=== PATIENT | male | born 1955 | race Caucasian/White ===

== ENCOUNTER → 2020-03-22 | Outpatient (CLI) | payer OTHER | END | disposition home or self-care (01) | LOC: OIH 09:14 | PROVIDERS: ATTEND Internal Medicine | DX: M54.2 Cervicalgia (principal) | CPT/HCPCS: 72040 ==

== ENCOUNTER 2020-05-10 10:46 | Day surgery (SDC) | payer OTHER ==
[2020-05-07] MEDS: CEFTRIAXONE SODIUM 1 GM IVP SCH (11:30)
[2020-05-07 12:41] VITALS: BP 146/83
[2020-05-08] MEDS: CEFTRIAXONE SODIUM 1 GM IVP SCH (11:40)
[2020-05-09] MEDS: CEFTRIAXONE SODIUM 1 GM IVP SCH (12:00)
[~2020-05-10] VITALS: Ht 170.2 cm; Wt 58.8 kg
[2020-05-10] VITALS (18 sets, daily range): BP systolic 133–156; BP diastolic 86–99
[~2020-05-10 10:46] MED LIST: MIRA25TA PO
[2020-05-10] MEDS ORDERED: LACTATED RINGERS 1000ML 1,000 ML IV ONE (12:55)
[2020-05-10] MEDS ORDERED: LIDOCAINE PF 2% 5ML ABBOJECT ONE (16:20)
[2020-05-10] MEDS ORDERED: DEXAMETHASONE SOD PHOSPHATE 10MG/ML 1ML VIAL ONE (16:20)
[2020-05-10] MEDS ORDERED: GLYCOPYRROLATE 1 MG/5 ML SYRINGE ONE (16:20)
[2020-05-10] MEDS ORDERED: PROPOFOL 10 MG/ML 20ML VIAL IV ONE (16:20)
[2020-05-10] MEDS ORDERED: SUCCINYLCHOLINE CHLORIDE 20 MG/ML 10 ML VIAL ONE (16:20)
[2020-05-10] MEDS ORDERED: ONDANSETRON HCL 4 MG/2 ML VIAL ONE ×2 (16:20→17:26)
[2020-05-10] MEDS ORDERED: ROCURONIUM 10MG/1ML SYR 10 MG/ML ML ONE (16:21)
[2020-05-10] MEDS ORDERED: NEOSTIGMINE 5MG/5ML SYR IV ONE (16:21)
[2020-05-10] MEDS ORDERED: FENTANYL CITRATE PF 50 MCG/1 ML 2ML VIAL ONE (16:21)
[2020-05-10] MEDS ORDERED: MIDAZOLAM HCL 1 MG/ML 2ML VIAL ONE (16:21)
[2020-05-10] MEDS: CEFTRIAXONE SODIUM 1 GM IVP SCH (17:18)
[2020-05-10] MEDS ORDERED: OPIUM/BELLADONNA ALKALOIDS 1 EACH SUPP.RECT RC ONE ×2 (17:43→17:45)
[2020-05-10] MEDS ORDERED: MEPERIDINE-PF 25 MG/ML SYG ONE (18:25)
[2020-05-10] MEDS ORDERED: PHENAZOPYRIDINE HCL 200 MG TABLET ONE (19:24)
== END 2020-05-10 20:45 | disposition home or self-care (01) ==
LOC: DAH 10:46
PROVIDERS: ATTEND Urology
DX: N40.1 Benign prostatic hyperplasia with lower urinary tract symptoms (principal); N32.0 Bladder-neck obstruction; Z20.828 Contact with and (suspected) exposure to other viral communicable diseases; R35.1 Nocturia
CPT/HCPCS: 52648; A4215; A4221; A4222; A4223; A4340; A4354; A4358; A4600; A4657; A4663; A5113; A6260; C9803; J0330; J0696; J1100; J2001; J2175; J2250; J2405 ×2; J2704; J2710; J3010; J3490; J7120 ×2; U0003